=== PATIENT | female | born 1985 | race Caucasian/White ===

== ENCOUNTER 2020-10-19 22:09 | Emergency (ER) | payer MEDICAID ==
--- NOTE | 2020-10-19 22:36 | EDM.PDOC ---
ED HPI GENERAL MEDICAL PROBLEM - General Chief Complaint: Abdominal Pain Stated Complaint: STOMACH PAIN Time Seen by Provider: 10/19/20 22:15 Source of Information: Reports: Patient History Limitations: Reports: No Limitations - History of Present Illness INITIAL COMMENTS - FREE TEXT/NARRATIVE: Patient states for the last 2 days she has been having intermittent sharp stabbing/crampy abdominal pain generalized all over her abdomen. She states yesterday the pain was worse about a 8 and is gotten better through the day down to a 6 now still generalized.She also took some Excedrin earlier today which helped Patient states she had a sausage Egg McMuffin today and pot pie along with drinking about 8 bottles of water. She denies any nausea vomiting diarrhea. She did take a laxative 2 days ago secondary to being constipated for the last couple of days and did not have bowel movement until yesterday. She has not had 1 today. Last menstrual period was 03 September patient has a tubal She denies any other complaints at this time Duration: Day(s):, Intermittent Quality: Reports: Stabbing, Other (cramping ) Severity: Mild Improves with: Reports: Medication, Rest Worsens with: Reports: None Associated Symptoms: Reports: No Other Symptoms - Related Data Allergies Allergy/AdvReac Type Severity Reaction Status Date / Time No Known Allergies Allergy Verified 10/19/20 22:35 Home Meds: Home Meds Levothyroxine [Sythroid] 100 mcg PO DAILY 11/23/17 [History] Phentermine HCl 37.5 mg PO DAILY 11/23/17 [History] Past Medical History Endocrine/Metabolic History: Reports: Hypothyroidism ED ROS GENERAL - Review of Systems Review Of Systems: See Below Constitutional: Reports: No Symptoms, Other (PT noted be cleaning her cell phone upon entering the room no acute distress noted laughing with her son) HEENT: Reports: No Symptoms Respiratory: Reports: No Symptoms Cardiovascular: Reports: No Symptoms Endocrine: Reports: No Symptoms GI/Abdominal: Reports: Abdominal Pain, Constipation. Denies: Black Stool, Bloody Stool, Diarrhea, Decreased Appetite, Distension, Flatus, Hematochezia, Melena, Nausea, Vomiting : Reports: No Symptoms Musculoskeletal: Reports: No Symptoms Skin: Reports: No Symptoms Neurological: Reports: No Symptoms Psychiatric: Reports: No Symptoms Hematologic/Lymphatic: Reports: No Symptoms Immunologic: Reports: No Symptoms ED EXAM, GI/ABD - Physical Exam Exam: See Below Exam Limited By: No Limitations General Appearance: Alert, WD/WN, No Apparent Distress Eyes: Bilateral: Normal Appearance Throat/Mouth: Normal Inspection, Normal Lips, Normal Teeth, Normal Gums, Normal Oropharynx, Normal Voice, No Airway Compromise Head: Atraumatic, Normocephalic Neck: Normal Inspection, Supple, Non-Tender, Full Range of Motion Respiratory/Chest: No Respiratory Distress, Lungs Clear, Normal Breath Sounds, No Accessory Muscle Use, Chest Non-Tender Cardiovascular: Normal Peripheral Pulses, Regular Rate, Rhythm, No Edema, No Gallop, No JVD, No Murmur, No Rub GI/Abdominal Exam: Normal Bowel Sounds, Soft, Non-Tender, No Organomegaly, No Distention, No Abnormal Bruit, No Mass, Pelvis Stable, Other. No: Guarding, Rigid, Rebound, Tender Back Exam: Normal Inspection, Full Range of Motion. No: CVA Tenderness (L), CVA Tenderness (R) Extremities: Normal Inspection, Normal Range of Motion, Non-Tender Neurological: Alert, Oriented, CN II-XII Intact, Normal Cognition, Normal Gait Psychiatric: Normal Affect, Normal Mood Skin Exam: Warm, Dry, Intact, Normal Color, No Rash Course - Vital Signs Text/Narrative:: Urine hCG Bentyl 20 mg p.o. Patient is to follow-up with primary care provider educated on increasing fresh fruits and vegetables fiber and drinking plenty of fluids Patient was rechecked after given Bentyl states the pain while she lays down is completely resolved and has gotten some better with her set up the pain is now 4 out of 10 she is okay with going home and following up primary care provider or return if anything returns or gets worse - Orders/Labs/Meds Orders: Active Orders 24 hr Category Date Time Status HCG URINE, POC [POC] Routine Lab 10/19/20 22:36 Ordered Meds: Medications Discontinued Medications Generic Name Dose Route Start Last Admin Trade Name Freq PRN Reason Stop Dose Admin Dicyclomine HCl 20 mg 10/19/20 22:30 10/19/20 22:52 Dicyclomine 10 Mg Cap PO 10/19/20 22:31 20 mg ONETIME ONE Administration Departure - Departure Time of Disposition: 23:10 Disposition: Home, Self-Care 01 Condition: Good Clinical Impression: Abdominal pain - Discharge Information Instructions: Abdominal Pain, Adult, [id number] Referrals: Annabelle Maier PA-C [Primary Care Provider] - Forms: ED Department Discharge Additional Instructions: Return to the emergency room if anything changes or gets worse Follow-up with your primary care provider in the next 24 hours Make sure you drink at least 8 to 10 glasses of water a day make sure you eat plenty of fresh fruits and vegetables plenty of fiber I would eat a bland diet for the next 24 to 48 hours you may consider taking some stool softeners as well follow directions on the box - Problem List & Annotations (1) Abdominal pain SNOMED Code(s): 70640977 Code(s): R10.9 - UNSPECIFIED ABDOMINAL PAIN Status: Acute Current Visit: Yes - My Orders Last 24 Hours: My Active Orders 10/19/20 22:36 HCG URINE, POC [POC] Routine - Assessment/Plan Last 24 Hours: My Active Orders 10/19/20 22:36 HCG URINE, POC [POC] Routine
[2020-10-19] MEDS: Dicyclomine 10 MG Cap PO ONE (22:52)
== END 2020-10-19 23:25 | disposition home or self-care (01) ==
LOC: VM.ED 22:09
DX: R10.84 Generalized abdominal pain (principal); E03.9 Hypothyroidism, unspecified; Z79.899 Other long term (current) drug therapy
CPT/HCPCS: 81025; 99284; A9270-GY